=== PATIENT | male | born 1950 | race Caucasian/White ===

== ENCOUNTER 2021-10-27 06:13 | Day surgery (SDC) | payer OTHER, MEDICARE ==
[~2021-10-27] VITALS: Ht 190.5 cm; Wt 144.2 kg
[2021-10-27] MEDS ORDERED: PROPOFOL 200MG/ 20ML VIAL (DIPRIVAN) IV ONE (06:14)
[2021-10-27] MEDS ORDERED: ONDANSETRON HCL 4 MG/2 ML VIAL IVP PRN (08:30)
[2021-10-27] MEDS ORDERED: LABETALOL 100 MG/ 20ML VIAL IVP PRN (08:30)
[2021-10-27] MEDS ORDERED: NACL 0.9% 1,000 ML IV SCH (08:30)
[2021-10-27] MEDS ORDERED: hydrALAZINE HCL 20 MG/ML VIAL IVP PRN (08:30)
[2021-10-27 15:19] VITALS: BP_SYST 110
== END 2021-10-27 09:25 | disposition home or self-care (01) ==
LOC: SDS 06:13 → SMU 06:14 → SDS 09:25
PROVIDERS: ATTEND Internal Medicine
DX: K59.09 Other constipation (principal); D12.2 Benign neoplasm of ascending colon; D12.3 Benign neoplasm of transverse colon; K57.30 Diverticulosis of large intestine without perforation or abscess without bleeding; K64.8 Other hemorrhoids; Z86.010 Personal history of colon polyps; Z01.810 Encounter for preprocedural cardiovascular examination; Z01.818 Encounter for other preprocedural examination; E11.9 Type 2 diabetes mellitus without complications; Z20.822 Contact with and (suspected) exposure to COVID-19; I10 Essential (primary) hypertension; E03.9 Hypothyroidism, unspecified; G47.30 Sleep apnea, unspecified; E66.9 Obesity, unspecified; Z68.39 Body mass index [BMI] 39.0-39.9, adult
CPT/HCPCS: 71046; 36415 ×2; 93005; 45380; 45385; 87426; 82962; 82948; 88305; U0003; J2704